=== PATIENT | male | born 1930 | race Caucasian/White ===

== ENCOUNTER 2021-04-20 00:04 | Emergency (ER) | payer MEDICARE, BC ==
[~2021-04-20] VITALS: Ht 170.2 cm; Wt 63.5 kg
--- NOTE | 2021-04-20 00:19 | NUR ---
Pt brought into room ED4B by hide sorter for lac. pt on gurney in pos of comfort. awaiting EDMD for eval.
--- NOTE | 2021-04-20 01:00 | NUR ---
Pts wound on Lt palm just inferior to first digit submerged in NS/betadine antiseptic soln, Wound scrubbed and cleansed with antiseptic soln. Wound clean and dry and ready for EDMD inspection and dermabonding.
--- NOTE | 2021-04-20 01:10 | NUR ---
Dermabond and tdap at bedside, EDMD with pt to treat wound.
[2021-04-20] MEDS ORDERED: TDAP DIPH,PERTUSS,TET VAC/PF 0.5 ML DISP.SYRIN IM ONE ×2 (01:14→01:30)
--- NOTE | 2021-04-20 01:15 | NUR ---
EDMD finished treating superficial wound with dermabond after cleaning it onemore time with betadine soln. Tdap administered and pt awaiting dc instructions.
--- NOTE | 2021-04-20 01:25 | NUR ---
Pt given dc instructions and pt confirmed understanding of aftercare and wound management. Pt denies any pain, sob, dizziness, n/v or discomfort. no s/sx of distress present. Pt dced home and ambulated out of dept with steady gait.
[2021-04-20 01:41] VITALS: BP 135/68
== END 2021-04-20 01:25 | disposition home or self-care (01) ==
LOC: ER 00:04
DX: S61.011A Laceration without foreign body of right thumb without damage to nail, initial encounter (principal); W01.118A Fall on same level from slipping, tripping and stumbling with subsequent striking against other sharp object, initial encounter; Y92.89 Other specified places as the place of occurrence of the external cause; I10 Essential (primary) hypertension; I48.91 Unspecified atrial fibrillation
CPT/HCPCS: 90715; A4663